=== PATIENT | female | born 1970 | race Caucasian/White ===

== ENCOUNTER 2019-10-12 15:34 | Emergency (ER) | payer OTHER ==
[~2019-10-12] VITALS: Ht 162.6 cm; Wt 78.9 kg
[2019-10-12] MEDS ORDERED: ZYRTEC10 M3 (15:51)
== END 2019-10-13 01:34 | disposition home or self-care (01) ==
LOC: ER 15:34
DX: K52.89 Other specified noninfective gastroenteritis and colitis (principal); R10.32 Left lower quadrant pain

== ENCOUNTER 2024-09-07 07:12 | Outpatient (CLI) | payer OTHER ==
[~2024-09-07 07:12] MED LIST: ZYRTEC10 M3
== END 2024-09-07 07:18 | disposition home or self-care (01) ==
LOC: MAMO-SONO 07:12
PROVIDERS: ATTEND Obstetrics & Gynecology
DX: N60.22 Fibroadenosis of left breast (principal); Z12.31 Encounter for screening mammogram for malignant neoplasm of breast

== ENCOUNTER 2024-12-08 07:29 | Inpatient (IN) | payer OTHER ==
[~2024-12-08] VITALS: Ht 162.6 cm; Wt 83.0 kg
[2024-12-08] MEDS ORDERED: COZAAR100 MG PO (07:55)
[2024-12-08] MEDS ORDERED: TAPAZOLE5 MG (07:56)
[2024-12-08 07:59] VITALS: BP 124/82
[2024-12-08 08:28] LABS: HEMATOCRIT 38.2 % (36.0-45.00); HEMOGLOBIN 12.5 g/dL (12.0-15.00); MEAN CELL VOLUME 83.6 fL (80.00-100.00); MEAN CORPUSCULAR HEMOGLOBIN 27.3 pg (27.00-32.0); MEAN CORPUSCULAR HGB CONC 32.7 g/dl (32.0-36.0); PLATELET COUNT 313 K/uL (150-450); RED BLOOD COUNT 4.56 M/uL (4.00-6.00); RED CELL DISTRIBUTION WIDTH 13.5 % (11.5-14.5)
[2024-12-08 08:36] LABS: PH,URINE 5.5 (5.0-8.0); URINE APPEARANCE Clear; URINE BILIRRUBIN Negative (NEGATIVE); URINE BLOOD Negative; URINE COLOR Yellow; URINE GLUCOSE Negative (NEGATIVE); URINE KETONE Negative (NEGATIVE); URINE LEUKOCYTE Negative; URINE NITRATE Negative; URINE PROTEIN Negative (NEGATIVE); URINE UROBILINOGEN 0.2 E.U./dl
[2024-12-08 08:40] LABS: URINE BACTERIA 125.9 uL (0.0-1933); URINE EPITHELIAL CELLS 1.5 uL (0.0-38.8)
[2024-12-08 08:59] LABS: INR 0.95; PARTIAL THROMBOPLASTIN TIME 30.9 SECONDS (22.0-34.0); PROTHROMBIN TIME 10.4 SECONDS (9.0-11.5)
[2024-12-08 09:13] LABS: ALBUMIN 3.8 gm/dL (3.4-5.0); BILIRUBIN TOTAL 0.35 mg/dL (0.3-1.2); CALCIUM 9.7 mg/dL (8.5-10.1); CREATININE SERUM 0.75 mg/dL (0.55-1.02); GFR 81.15; GLOBULINA 3.6 G/DL (2.4-3.5); POTASSIUM 4.56 mEq/L (3.5-5.1); TOTAL PROTEIN 7.4 gm/dL (6.4-8.2)
[2024-12-08 09:32] LABS: URINE RBC 1.1 uL (0.0-20.8); URINE WBC 1.5 uL (0.0-23.2)
[2024-12-15] MEDS ORDERED: DEXAMETHASONE SODIUM PHOSPHATE 4 MG/ML VIAL ONE ×2 (10:23)
[2024-12-15] MEDS ORDERED: ONDANSETRON HCL 2 MG/ML VIAL IV PRN (15:00)
[2024-12-15] MEDS ORDERED: ENALAPRILAT DIHYDRATE 1.25 MG/ML VIAL IV PRN (15:00)
[2024-12-15] MEDS ORDERED: GABAPENTIN 100 MG CAPSULE PO SCH (17:00)
[2024-12-15] MEDS ORDERED: TRAMADOL HCL 50 MG TABLET PO SCH (17:00)
[2024-12-15] MEDS ORDERED: ACETAMINOPHEN 500 MG GEL..CAP PO SCH (17:00)
[2024-12-15] MEDS ORDERED: CYCLOBENZAPRINE HCL 5 MG TABLET PO SCH (17:00)
[2024-12-15] MEDS ORDERED: ACETAMINOPHEN 500 MG GEL..CAP PO ONE (17:31)
[2024-12-15 19:59] VITALS: BP 162/91; O2SAT 95
[2024-12-16] VITALS: BP 113/71; O2SAT 91
[2024-12-16 08:52] VITALS: BP 144/83; O2SAT 96
[2024-12-16] MEDS ORDERED: LOSARTAN POTASSIUM 100 MG TABLET PO SCH (09:00)
== END 2024-12-16 11:48 | disposition home or self-care (01) | DRG 627 ==
LOC: SURH 12-15 07:00 → O/R 12-15 07:24 → SURH 12-15 07:30
PROVIDERS: ADMIT Surgery; ATTEND Surgery
PROC: 0GTH0ZZ Resection of Right Thyroid Gland Lobe, Open Approach (ICD-10-PCS; principal; 2024-12-15)
DX: E05.20 Thyrotoxicosis with toxic multinodular goiter without thyrotoxic crisis or storm (principal)

== ENCOUNTER 2025-03-18 07:58 | Outpatient (CLI) | payer OTHER ==
[~2025-03-18 07:58] MED LIST changes: +COZAAR100 MG PO; +TAPAZOLE5 MG
[2025-03-18 09:12] LABS: ALT/SGPT 36.0 U/L (12-78); AST/SGOT 22.0 U/L (15-37); BILIRUBIN TOTAL 0.57 mg/dL (0.3-1.2); BUN CREA RATIO 19.0 (7.0-25.0); CHOL HDL RATIO 2.1 (0-5.0); CREATININE SERUM 0.78 mg/dL (0.55-1.02); GFR 77.26; GLOBULINA 3.4 G/DL (2.4-3.5); GLUCOSE FASTING 100.0 mg/dL (65-100); HDL 69.0 mg/dl (40-60); LDL 53.0 mg/dl (0-130); OSMOLALITY SERUM 282.0 MOSM/KG (275-295); T4 FREE 1.12 NG/ML (0.76-1.46); TSH 1.4 uIU/mL (0.358-3.74); VLDL 19.0 (0-39)
== END 2025-03-18 08:01 | disposition home or self-care (01) ==
LOC: LAB 07:58
DX: E11.65 Type 2 diabetes mellitus with hyperglycemia (principal); I10 Essential (primary) hypertension; E03.8 Other specified hypothyroidism; E16.2 Hypoglycemia, unspecified; R73.03 Prediabetes; C73 Malignant neoplasm of thyroid gland